=== PATIENT | male | born 1975 | race African-American/Black ===

== ENCOUNTER 2021-07-31 09:08 | Day surgery (SDC) | payer OTHER ==
[2021-07-31 10:20] LABS: Basophils # (Auto) 0.1 K/mm3 (0.0-0.1); Basophils % (Auto) 1.1 % (0.0-1.8); Eosinophils % (Auto) 0.8 % (0.0-4.3); Hematocrit 40.9 % (35.5-45.6); Hemoglobin 13.6 gm/dl (11.8-15.2); Lymphocytes # (Auto) 1.4 K/mm3 (1.2-5.4); Lymphocytes % (Auto) 26.1 % (13.4-35.0); Mean Corpuscular HGB Conc 33 % (32-34); Mean Corpuscular Volume 78 fl (84-94); Monocytes # (Auto) 0.7 K/mm3 (0.0-0.8); Monocytes % (Auto) 14.2 % (0.0-7.3); Platelet Count 243 K/mm3 (140-440); Red Blood Count 5.24 M/mm3 (3.65-5.03); Red Cell Distribution Width 14.6 % (13.2-15.2)
[2021-07-31 10:33] LABS: BUN/Creatinine Ratio 21; Blood Urea Nitrogen 17 mg/dL (9-20); Calcium 9.2 mg/dL (8.4-10.2); Hemolysis Index 10
[2021-07-31 10:44] LABS: INR 0.95 (0.87-1.13); Partial Thromboplastin Time 25.3 Sec. (24.2-36.6)
[2021-07-31] MEDS: SODIUM CHLORIDE 0.9% 500 ML 500 ML IV SCH ×2 (10:57→11:33)
[2021-07-31] MEDS ORDERED: VERAPAMIL 5 MG/2 ML INJ ONE (10:59)
[2021-07-31] MEDS ORDERED: HEPARIN/NS 5000 UNIT/500ML 1,000 ML IR ONE (10:59)
[2021-07-31] MEDS ORDERED: HEPARIN 10,000 UNITS/10 ML VIAL ONE (10:59)
[2021-07-31] MEDS ORDERED: NITROGLYCERIN SYRINGE 3 ML ONE (11:00)
[2021-07-31] MEDS ORDERED: LIDOCAINE (2%) 20 MG/1 ML VIAL 20 ML MDV INFILTRATI ONE (11:00)
[2021-07-31] MEDS: MIDAZOLAM 2 MG/2 ML INJ ONE ×3 (11:24→11:37)
[2021-07-31] MEDS: fentaNYL 100 MCG/2 ML INJ ONE ×3 (11:24→11:37)
[2021-07-31] MEDS ORDERED: traMADol 50 MG TAB PO PRN (11:42)
[2021-07-31] MEDS ORDERED: HYDROcodone/ACETAMINOPHEN 5-325 MG TAB PO PRN (11:42)
[2021-07-31] MEDS ORDERED: SODIUM CHLORIDE 0.9% 1000 ML 1,000 ML IV SCH (11:45)
--- NOTE | 2021-07-31 11:45 | Short Stay Summary ---
Short Stay Documentation Date of service: 07/31/21 - History H&P: obtained from office - Allergies and Medications Current Medications: Allergies No Known Allergies Allergy (Verified 07/31/21 09:47) Active Medications Sodium Chloride (Nacl 0.9% 500 Ml) 500 mls @ 50 mls/hr IV DIRECT SERGE Stop: 07/31/21 19:59 Last Admin: 07/31/21 10:57 Dose: 50 mls/hr - Brief post op/procedure progress note Date of procedure: 07/31/21 Pre-op diagnosis: ischemica cardiomyopathy Post-op diagnosis: same Estimated blood loss: none Pathology: none Condition: stable - Hospital course Hospital course: Uneventful post cardiac cath - Disposition Condition at discharge: Good Short Stay Discharge Plan Activity: other (Routine postcardiac cath) Diet: regular, low fat, low cholesterol, low salt Wound: keep clean and dry Special Instructions: other (Routine post cardiac cath) Follow up with: ROSALINDA ULLOA MD [Primary Care Provider] - 7 Days
[2021-07-31 13:37] VITALS: BP 114/71
--- NOTE | 2021-08-05 10:22 | Cardiac Catherization Report ---
DATE OF PROCEDURE: 07/31/2021 CORONARY ANGIOGRAM REPORT PROCEDURES PERFORMED: 1. Selective left and right coronary angiogram. 2. Left ventriculogram. COM WRITER: Jc Madden MD INDICATIONS: The patient is a 45-year-old gentleman with a history of coronary artery disease status post bypass surgery. Lately, he has been experiencing chest pains. He had a stress test done, which showed new onset cardiomyopathy as well as a large anterior fixed defect. In view of the abnormal study and ongoing chest pain, a cardiac catheterization has been recommended. REFERRING PHYSICIAN: Dr. Huff. SEDATION DETAILS: Intravenous Versed and fentanyl was used for sedation. Sedation was administered under my supervision and the patient was continuously monitored. Sedation start time 11:23 a.m., sedation end time 11:38 a.m. Total sedation time was 15 minutes. DESCRIPTION OF PROCEDURE: After obtaining written consent, the patient was draped using sterile technique. A 2% lidocaine was injected into the right wrist. A 5-Tajik vascular sheath was inserted into the right radial artery. A 5-Tajik JL3.5 catheter was used to selectively engage the left coronary artery. A 5-Tajik JR4 catheter was used to selectively engage the right coronary artery. A 5-Tajik JR4 catheter was used to perform a left ventriculogram. No complications occurred during the procedure. Hemostasis was achieved at the end of the procedure using manual pressure. SPECIMEN REMOVED: None. ESTIMATED BLOOD LOSS: Minimal. FINDINGS: HEMODYNAMICS: AO 109/70, LV 109/12, LVEDP was 12. Left ventriculography done in 30-degree CARVALHO projection shows mildly reduced LV systolic function, EF 40-45% with anterior wall hypokinesis. ANGIOGRAM DETAILS: 1. Left main is angiographically normal. 2. LAD is a small caliber vessel. Widely patent proximal stent noted. No significant stenosis noted. 3. The circumflex is a large codominant vessel. Appears angiographically normal. 4. The RCA is a medium caliber codominant vessel appears angiographically normal. IMPRESSION: 1. Widely patent left anterior descending stent in a small caliber vessel. 2. Otherwise, no significant coronary artery disease. 3. Ischemic cardiomyopathy, ejection fraction 40-45%. PLAN: 1. Aggressive risk factor modification. 2. Medical management of ischemic cardiomyopathy. 3. Routine radial artery sheath care. TID: [id number] RECEIPT: [id number] CORETTA/JOELLE/QAMAR
== END 2021-07-31 15:08 | disposition home or self-care (01) ==
LOC: CATHLABREC 09:08
PROVIDERS: ATTEND Internal Medicine Cardiovascular Disease
DX: R07.9 Chest pain, unspecified (principal); R06.02 Shortness of breath; I25.10 Atherosclerotic heart disease of native coronary artery without angina pectoris; E78.00 Pure hypercholesterolemia, unspecified; I11.9 Hypertensive heart disease without heart failure; Z79.899 Other long term (current) drug therapy; Z98.890 Other specified postprocedural states
CPT/HCPCS: 36415; 80048; 85025; 85610; 85730; 93005; 93458; 99156; C1887; C1894; J1644; J1815; J2250; J3010; J3490; J7040; Q9967